=== PATIENT | female | born 1950 | race Caucasian/White ===

== ENCOUNTER 2019-09-14 11:51 | Emergency (ER) | payer MEDICARE, OTHER, SELFPAY ==
[2019-09-14 11:52] VITALS: BP 131/77; PULSE 97; RESP 16; TEMP 37.1; O2SAT 100; BMI 26.5
[2019-09-14] MEDS: CYCLOBENZAPRINE 10 MG TABLET PO (12:25)
[2019-09-14] MEDS: CYCLOBENZAPRINE 10 MG PREPACK 1 BOTTLE MISC (12:25)
[2019-09-14 12:59] VITALS: BP 128/77; PULSE 92; RESP 16; O2SAT 97
--- NOTE | 2019-09-14 13:45 | ED_ITS ---
HPI - Neck Pain/Injury <SCOTT Sands - Last Filed: 09/14/19 13:49> General Chief Complaint: Neck Pain/Injury Stated Complaint: stiff neck for 2 weeks/not sleeping Time Seen by Provider: 09/14/19 12:01 Source: patient and family Mode of arrival: Ambulatory Limitations: no limitations History of Present Illness HPI Narrative: The patient is a 68-year-old female nonsmoker with history of osteoporosis who presents with a chief complaint of a stiff neck for 2 weeks. She presents as her daughter brought her to the emergency department today because she is frustrated with her mother's pain for the past 2 weeks. Patient denies any trauma or falls etc.. States that the right side of her neck going into. Her shoulder has beentight she has tried Motrin massage etcetera. She denies any chest pain shortness of breath fevers nausea vomiting or diarrhea. She states that it is worse with motion and pressure. Related Data Previous Rx's Medication Instructions Recorded cyclobenzaprine 10 mg PO TID PRN #14 tab 09/14/19 Allergies Allergy/AdvReac Type Severity Reaction Status Date / Time Penicillins Allergy Verified 09/14/19 12:02 Sulfa (Sulfonamide Allergy Verified 09/14/19 12:02 Antibiotics) Review of Systems <SCOTT Sands - Last Filed: 09/14/19 13:49> Review of Systems Narrative: GENERAL: Denies chills, fatigue, malaise, fever, sweats. HEENT: Denies sinus pain, ear pain, sore throat, difficulty swallowing, dizziness. RESPIRATORY: Denies dyspnea, cough, wheezing, hemoptysis, sputum. CARDIOVASCULAR: Denies chest pain, palpitations, orthopnea, edema, GASTROINTESTINAL: Denies nausea, vomiting, abdominal pain, diarrhea, constipation, melena. : Denies dysuria, frequency, incontinence, hematuria, urinary retention. MUSCULOSKELETAL: See HPI SKIN: Denies rash, skin lesions, or other NEUROLOGIC: Denies weakness, headache, numbness, change in speech, confusion, seizures, incoordination. PSYCHIATRIC: No concerning psychosocial issues. 12 point review of systems is negative except for those stated above Patient History <SCOTT Sands - Last Filed: 09/14/19 13:49> Social History Smoking Status: Never smoker Smoking Status: Never smoker alcohol intake frequency: a few times a week Alcohol type: wine Substance Use Type: does not use Exam <JOJO Sands - Last Filed: 09/14/19 13:49> Narrative Exam Narrative: GENERAL: This is a well-nourished, well-developed patient, in no acute distress HEAD: Atraumatic. Normocephalic. No temporal or scalp tenderness. EYES: Pupils equal round and reactive. Extraocular motions intact. No scleral icterus. No injection or drainage. ENT: Nose without bleeding, purulent drainage or septal hematoma. Throat without erythema, tonsillar hypertrophy or exudate. Uvula midline. Airway patent. NECK: Trachea midline. No JVD or lymphadenopathy. Supple, nontender, no meningeal signs. CARDIOVASCULAR: Regular rate and rhythm RESPIRATORY: Clear to auscultation. Breath sounds equal bilaterally. No wheezes, rales, or rhonchi. No cough. No increased respiratory effort. No accessory muscle use. GASTROINTESTINAL: Abdomen soft, non-tender, nondistended. No hepato- splenomegaly, or palpable masses. No guarding. EXTREMITIES: No clubbing, cyanosis, or edema. No joint tenderness, effusion, or edema noted. BACK: Nontender without deformity or crepitance. No flank tenderness. Pain to palpation of right sternocleidomastoid no pain to CT or L-spine palpation. NEURO: AOx3 Skin: No erythema, rash laceration or abrasion noted on visible skin Initial Vital Signs Initial Vital Signs: Vital Signs Temperature 98.7 F 09/14/19 11:52 Pulse Rate 97 H 09/14/19 11:52 Respiratory Rate 16 09/14/19 11:52 Blood Pressure 131/77 09/14/19 11:52 Pulse Oximetry 100 09/14/19 11:52 <Joy Rebolledo DO - Last Filed: 09/15/19 07:12> Initial Vital Signs Initial Vital Signs: Vital Signs Temperature 98.7 F 09/14/19 11:52 Pulse Rate 97 H 09/14/19 11:52 Respiratory Rate 16 09/14/19 11:52 Blood Pressure 131/77 09/14/19 11:52 Pulse Oximetry 100 09/14/19 11:52 Course <JOJO Sands - Last Filed: 09/14/19 13:49> Orders Ordered: Discontinued Medications Cyclobenzaprine HCl (Flexeril) 10 mg PO NOW ONE Stop: 09/14/19 12:16 Last Admin: 09/14/19 12:25 Dose: 10 mg Documented by: JAMES Cyclobenzaprine HCl (Flexeril 10 Mg Prepack) 1 bottle MISC SEEINSTR ONE Stop: 09/14/19 12:16 Last Admin: 09/14/19 12:25 Dose: 1 bottle Documented by: JAMES Vital Signs Vital signs: Vital Signs - 8 hr 09/14/19 11:52 09/14/19 12:59 Temperature 98.7 F Pulse Rate 97 H 92 H Respiratory Rate 16 16 Blood Pressure 131/77 128/77 Pulse Oximetry 100 97 <Joy Rebolledo DO - Last Filed: 09/15/19 07:12> Orders Ordered: Discontinued Medications Cyclobenzaprine HCl (Flexeril) 10 mg PO NOW ONE Stop: 09/14/19 12:16 Last Admin: 09/14/19 12:25 Dose: 10 mg Documented by: JAMES Cyclobenzaprine HCl (Flexeril 10 Mg Prepack) 1 bottle MISC SEEINSTR ONE Stop: 09/14/19 12:16 Last Admin: 09/14/19 12:25 Dose: 1 bottle Documented by: JAMES Vital Signs Vital signs: Vital Signs - 8 hr 09/14/19 11:52 09/14/19 12:59 Temperature 98.7 F Pulse Rate 97 H 92 H Respiratory Rate 16 16 Blood Pressure 131/77 128/77 Pulse Oximetry [address] [facility] - Neck Pain/Injury <JOJO Sands - Last Filed: 09/14/19 13:49> [facility] Narrative Medical decision making narrative: The patient is a 68-year-old female who presents with several weeks of right side of neck pain. She has pain to palpation of her sternocleidomastoid. She has no pain to palpation of her midline. She felt much improved after Flexeril and requested to go home. I discussed at length that she is to follow up with primary care provider in the next few days. Discussed at length continued [id number] measures for comfort such as Tylenol, Motrin with food, topicals etcetera. Discussed coming back to the emergency department for any acute concerns. Patient has no questions or concerns upon discharge and states understanding of return precautions and follow-up care. Discharge Plan Departure Patient Disposition: Home Clinical Impression: Muscle spasm Discharge Date/Time: 09/14/19 13:00 Instructions: DI for Neck Pain, DI for Muscle Spasm Activity Restrictions/Additional Instructions: Thank you for trusting us with your care today [facility] This can be sedating Please use heat [id number] medications as needed and able Please follow-up with primary care provider when you get home Please come back to the emergency department for any acute concerns such as chest pain, shortness of breath, concern of heart attack or stroke Prescriptions: New cyclobenzaprine 10 mg tablet 10 mg PO TID PRN (Reason: muscle spasm) Qty: 14 RF: 0 Referrals: [facility] [Outside]
== END 2019-09-14 13:00 | disposition home or self-care (01) ==
PROVIDERS: Emergency Provider Nurse Practitioner Family
DX: M62.838 Other muscle spasm (principal)
CPT/HCPCS: 99281; 99283